=== PATIENT | male | born 1980 | race Caucasian/White ===

== ENCOUNTER → 2017-01-03 | Outpatient (CLI) | payer BC | END | disposition home or self-care (01) | LOC: GMAH 14:20 | PROVIDERS: ATTEND Family Medicine | DX: L02.91 Cutaneous abscess, unspecified (principal) ==

== ENCOUNTER → 2018-07-21 | Outpatient (CLI) | payer BC | LOC: GMAH 16:13 | PROVIDERS: ATTEND Family Medicine | DX: M25.559 Pain in unspecified hip (principal) ==

== ENCOUNTER → 2018-09-30 | Outpatient (CLI) | payer BC | LOC: GMATM 11:37 | PROVIDERS: ATTEND Nurse Practitioner Family | DX: D51.3 Other dietary vitamin B12 deficiency anemia (principal); E55.9 Vitamin D deficiency, unspecified; E29.1 Testicular hypofunction; R53.83 Other fatigue ==

== ENCOUNTER → 2018-11-13 | Outpatient (CLI) | payer BC | LOC: GMATM 17:03 | PROVIDERS: ATTEND Nurse Practitioner Family | DX: D51.3 Other dietary vitamin B12 deficiency anemia (principal) ==